=== PATIENT | female | born 1955 | race Caucasian/White ===

== ENCOUNTER 2019-02-05 17:05 | Emergency (ER) | payer BC, MEDICARE ==
[~2019-02-05] VITALS: Ht 170.2 cm; Wt 65.0 kg
[2019-02-05] MEDS ORDERED: CLONIDINE 0.2MG TABLET PO ONE (17:45)
[2019-02-05 17:53] LABS: HEMATOCRIT. 46.4 % (36.0-48.0); HEMOGLOBIN. 15.5 g/dL (12.0-16.0); MEAN CORPUSCULAR HEMOGLOBIN 30.4 pg (28.0-32.0); MEAN CORPUSCULAR VOLUME 91.4 fL (81.0-99.0); MEAN PLATELET VOLUME 8.3 fl (7.4-10.4); PLATELET 351 x1000/uL (130-400); RED BLOOD CELL COUNT 5.08 mill/uL (4.2-5.4); RED CELL DISTRIBUTION WIDTH 14.3 % (11.6-14.6)
[2019-02-05 17:57] LABS: CHLORIDE 102 mEq/L (98-107)
[2019-02-05 18:06] LABS: PARTIAL THROMBOPLASTIN TIME 27.4 sec (23.4-31.0); PROTHROMBIN TIME 10.1 sec (9.6-11.0)
[2019-02-05 18:46] LABS: PLATELET ESTIMATE NORMAL
[2019-02-05] MEDS ORDERED: MORPHINE SULFATE 4 MG/ML CPJ (NOT FOR IM USE) IV ONE (19:00)
[2019-02-05] MEDS ORDERED: ONDANSETRON HCL 4MG/2ML INJ IV ONE (19:00)
[2019-02-05] MEDS ORDERED: AMLODIPINE 5MG TABLET PO ONE (21:00)
[2019-02-05 21:30] VITALS: BP 128/69
== END 2019-02-05 22:09 | disposition home or self-care (01) ==
LOC: ER 17:05
DX: I10 Essential (primary) hypertension (principal); R51 Headache; H40.9 Unspecified glaucoma; Z98.890 Other specified postprocedural states
CPT/HCPCS: 36415; 70450; 71045; 80053; 83880; 84484; 85025; 85610; 85730; 93005; 96374; 96375; 99284; J2270; J2405